=== PATIENT | male | born 1970 | race Caucasian/White ===

== ENCOUNTER 2017-03-20 07:48 | Emergency (ER) | payer OTHER ==
[~2017-03-20] VITALS: Ht 190.5 cm; Wt 97.4 kg
[2017-03-20 07:49] VITALS: BP 165/99
[2017-03-20] MEDS ORDERED: INDOMETHACIN 50 MG CAPSULE ONE (08:16)
[2017-03-20] MEDS ORDERED: INDOMETHACIN 50 MG CAPSULE PO ONE (09:00)
== END 2017-03-20 09:46 | disposition home or self-care (01) ==
LOC: ED 09:05
DX: S92.301A Fracture of unspecified metatarsal bone(s), right foot, initial encounter for closed fracture (principal); M79.671 Pain in right foot; G89.29 Other chronic pain; X58.XXXA Exposure to other specified factors, initial encounter; Y93.89 Activity, other specified; Y92.89 Other specified places as the place of occurrence of the external cause; Y99.8 Other external cause status
CPT/HCPCS: 99284

== ENCOUNTER 2017-03-22 09:24 | Emergency (ER) | payer OTHER ==
[~2017-03-22] VITALS: Ht 185.4 cm; Wt 92.0 kg
[2017-03-22 09:49] VITALS: BP 137/97
[2017-03-22 10:50] LABS: HEMATOCRIT 48.8 % (39.2-51.8); HEMOGLOBIN 16.9 g/dL (13.7-18.0); WHITE BLOOD COUNT 7.9 x10^3/uL (3.4-10)
[2017-03-22] MEDS ORDERED: KETOROLAC 30 MG/1 ML IVPush ONE (11:30)
[2017-03-22] MEDS ORDERED: KETOROLAC 30 MG/1 ML ONE (12:14)
== END 2017-03-22 12:27 | disposition home or self-care (01) ==
LOC: ED 09:56
DX: M19.171 Post-traumatic osteoarthritis, right ankle and foot (principal); T14.90 Injury, unspecified
CPT/HCPCS: 36415; 84550; 85025; 85651; 96374; 99284; J1885

== ENCOUNTER 2018-12-13 04:19 | Emergency (ER) | payer OTHER ==
[~2018-12-13] VITALS: Ht 188 cm; Wt 96.7 kg
[2018-12-13] MEDS ORDERED: DIPH,PERTUSS(ACELL),TET VAC/PF 0.5 ML IM-VACC ONE ×2 (05:00→05:12)
[2018-12-13 05:13] LABS: BASOPHILS # (AUTO) 0.03 x10^3/uL (0-0.1); BASOPHILS % (AUTO) 1 % (0-1); EOSINOPHILS # (AUTO) 0.22 x10^3/uL (0-0.4); EOSINOPHILS % (AUTO) 3 % (1-7); LYMPHOCYTES # (AUTO) 2.21 x10^3/uL (1-3.4); LYMPHOCYTES % (AUTO) 35 % (22-44); MD NO; MEAN CORPUSCULAR HEMOGLOBIN 31.1 pg (27.5-34.5); MEAN CORPUSCULAR HGB CONC 33.4 g/dL (33.2-36.2); MEAN CORPUSCULAR VOLUME 93.1 fL (81-97); MEAN PLATELET VOLUME 8.5 fL (7.4-10.4); MONOCYTES # (AUTO) 0.78 x10^3/uL (0.2-0.8); MONOCYTES % (AUTO) 12 % (2-9); NEUTROPHILS # (AUTO) 3.14 x10^3/uL (1.8-6.8); NEUTROPHILS % (AUTO) 49 % (42-75); PLATELET COUNT 182 x10^3/uL (130-400); RED BLOOD COUNT 5.19 x10^6/uL (4.38-5.82); RED CELL DISTRIBUTION WIDTH 12.8 % (9.4-14.8)
[2018-12-13] MEDS ORDERED: LIDOCAINE-MPF 1%, 5ML ONE (05:22)
[2018-12-13 05:25] LABS: ANION GAP 6 mmol/L (5-15); CALCIUM 8.6 mg/dL (8.5-10.1); CHLORIDE 107 mmol/L (98-107); CREATININE 0.98 mg/dL (0.7-1.3)
[2018-12-13] MEDS ORDERED: LIDOCAINE 2%, 20ML SQ ONE (05:30)
[2018-12-13] MEDS ORDERED: LIDOCAINE 1%, 10ML INFIL ONE (05:30)
[2018-12-13] MEDS ORDERED: BACITRACIN ZINC OINT 500U/GM, 0.9 GM ONE ×2 (05:55→07:36)
--- NOTE | 2018-12-13 06:53 | NUR ---
Recieved bedside report from JONES Case. All questions answered. Assuming care of pt. Pt ambulates with steady gait and balance to restroom. Pt AOX4, unlabored respirations with even chest rise and fall, and NADN. No other needs expressed at this time.
--- NOTE | 2018-12-13 06:53 | NUR ---
PT AMBULATORY STEADILY TO BATHROOM. REPORT TO CISCO GOLDMAN
[2018-12-13] MEDS ORDERED: CEFAZOLIN 1,000 MG IM ONE (07:00)
[2018-12-13] MEDS ORDERED: CEFAZOLIN 1,000 MG ONE (07:00)
[2018-12-13 07:12] VITALS: BP 123/81
--- NOTE | 2018-12-13 07:48 | NUR ---
Patient given discharge instructions and they have confirmed that they understand the instructions. Patient ambulatory with steady gait. Pt left with prescription, d/c paperwork, and all personal belongings. Pt left with bacitracin ointment.
== END 2018-12-13 07:51 | disposition home or self-care (01) ==
LOC: ED 05:26
DX: S01.21XA Laceration without foreign body of nose, initial encounter (principal); F10.129 Alcohol abuse with intoxication, unspecified; W18.30XA Fall on same level, unspecified, initial encounter; Y93.89 Activity, other specified; Y92.89 Other specified places as the place of occurrence of the external cause; Y99.8 Other external cause status
CPT/HCPCS: 13152; 36415; 70450; 70486; 72125; 80048; 80307; 85025; 90471; 90715; 96372; 99285; J0690